=== PATIENT | male | born 1950 ===

== ENCOUNTER 2021-09-04 10:43 | Emergency (ER) | payer MEDICARE, BC ==
[2021-09-04 10:46] VITALS: BP 163/73; PULSE 76
--- NOTE | 2021-09-04 11:07 | EDM.PDOC ---
ED HPI GENERAL MEDICAL PROBLEM - General Chief Complaint: General Stated Complaint: Rash Time Seen by Provider: 09/04/21 10:47 Source of Information: Reports: Patient History Limitations: Reports: No Limitations - History of Present Illness INITIAL COMMENTS - FREE TEXT/NARRATIVE: This patient is a 71 year old male that presents to the ER. Patient reports that he started 2 days ago with left front,m left lateral back. Patient reports some mild pain and burning. Patient denies any n, v, d, f. Reports no history of liver or renal disease. Onset Date: 09/02/21 Location: Reports: Back Front/Back Body Image: 1 - rash 2 - rash Severity: Mild Improves with: Reports: None Worsens with: Reports: None Associated Symptoms: Reports: Rash. Denies: Confusion, Chest Pain, Cough, cough w sputum, Fever/Chills, Headaches, Nausea/Vomiting, Shortness of Breath Left Trunk Pain Score (Numeric/FACES): 3 - Related Data Allergies Allergy/AdvReac Type Severity Reaction Status Date / Time methylprednisolone Allergy Cannot Verified 09/04/21 10:42 [From Medrol] Remember medrol Allergy Cannot Uncoded 09/04/21 10:42 Remember Home Meds: Home Meds Cholecalciferol (Vitamin D3) [Vitamin D] 5,000 units PO DAILY 04/15/15 [History] Clopidogrel Bisulfate [Clopidogrel] 75 mg PO DAILY 04/15/15 [History] Insulin Glarg,Human.Rec.Analog [Lantus Solostar] 10 units SQ BEDTIME 04/15/15 [History] Metoprolol Succinate [Toprol XL 50mg] 100 mg PO DAILY 04/15/15 [History] Quinapril HCl 40 mg PO DAILY 04/15/15 [History] amLODIPine Besylate [Amlodipine Besylate] 10 mg PO DAILY 04/15/15 [History] Aspirin [Halfprin] 81 mg PO BEDTIME 12/16/15 [History] Insulin Aspart [NovoLOG] 6 units SQ TIDAC 02/19/19 [History] Rosuvastatin [Crestor] 5 mg PO DAILY 02/19/19 [History] Acyclovir [Zovirax] 800 mg PO 5XDAY 7 Days #35 tab 09/04/21 [Rx] Past Medical History HEENT History: Reports: Impaired Vision Cardiovascular History: Reports: High Cholesterol, Hypertension, Stents Other Cardiovascular History: CAD: history of previous cardiac stents; said he had a physical per Dr. Nader Santana recently, then had a cardiolite stress, sent to cardiology; stents placed 01-28-19; since PTCA:denies any chest pain, denies any SOB, no orthopedic complaints, appetite good, denies dizziness, cardiac cath insertion site in right wrist healing, saw cardiology for followup last week--said they listened to his heart and lungs, denies any ankle edema; is back to work, at this time not to lift more than 5 lbs, uses his treadmill as before at 2 mph/0 slope then 2.5 mph then raises slope slightly for 15-30 min every day. Discussed. Endocrine/Metabolic History: Reports: Diabetes, Type II Other Endocrine/Metabolic History: says he checks his blood sugars at home, they have been in good range, last A1C is 12-21-18 at 6.8 Oncologic (Cancer) History: Reports: Prostate - Infectious Disease History Infectious Disease History: Reports: Shingles - Past Surgical History Cardiovascular Surgical History: Reports: Percutaneous Transluminal Angioplasty GI Surgical History: Reports: Appendectomy Male Surgical History: Reports: Prostatectomy Social & Family History - Tobacco Use Tobacco Use Status *Q: Never Tobacco User - Caffeine Use Caffeine Use: Reports: Coffee - Recreational Drug Use Recreational Drug Use: No ED ROS GENERAL - Review of Systems Review Of Systems: See Below Constitutional: Reports: No Symptoms HEENT: Reports: No Symptoms Respiratory: Reports: No Symptoms Cardiovascular: Reports: No Symptoms Endocrine: Reports: No Symptoms GI/Abdominal: Reports: No Symptoms : Reports: No Symptoms Musculoskeletal: Reports: No Symptoms Skin: Reports: Rash (left lower back) Neurological: Reports: No Symptoms Psychiatric: Reports: No Symptoms Hematologic/Lymphatic: Reports: No Symptoms Immunologic: Reports: No Symptoms ED EXAM, GENERAL - Physical Exam Exam: See Below General Appearance: Alert, WD/WN, No Apparent Distress Respiratory/Chest: No Respiratory Distress, Lungs Clear, Normal Breath Sounds, No Accessory Muscle Use Cardiovascular: Normal Peripheral Pulses, Regular Rate, Rhythm, No Edema, No Gallop, No JVD, No Murmur, No Rub Peripheral Pulses: 2+: Radial (L), Radial (R) Extremities: Normal Inspection Neurological: Alert, Oriented Psychiatric: Normal Affect, Normal Mood Skin Exam: Warm, Dry, Zoster-Like Rash (left lower lateral back along dermatome T9.) Course - Vital Signs Last Recorded V/S: Last Vital Signs Temp 95.3 F L 09/04/21 10:43 Pulse 76 09/04/21 10:43 Resp 16 09/04/21 10:43 BP 163/73 H 09/04/21 10:43 Pulse Ox 95 09/04/21 10:43 Departure - Departure Time of Disposition: 11:02 Disposition: Home, Self-Care 01 Condition: Fair Clinical Impression: Shingles Qualifiers: Herpes zoster complications: without complications Qualified Code(s): B02.9 - Zoster without complications - Discharge Information *PRESCRIPTION DRUG MONITORING PROGRAM REVIEWED*: Not Applicable *COPY OF PRESCRIPTION DRUG MONITORING REPORT IN PATIENT KASI: Not Applicable Prescriptions: Acyclovir [Zovirax] 800 mg PO 5XDAY 7 Days #35 tab Instructions: Shingles, [id number] Additional Instructions: Followup with primary care provider Return to the ER for worsening of condition or any emergent concerns such as fever, vomiting, or other concerns Acyclovir medication as prescribed to [facility]. Sepsis Event Note (ED) - Evaluation Sepsis Screening Result: No Definite Risk - Focused Exam Vital Signs: Vital Signs Temp Pulse Resp BP Pulse Ox 09/04/21 10:43 95.3 F L 76 16 163/73 H 95 - Assessment/Plan Plan: PLEASE SEE RN NOTE FOR PFS
== END 2021-09-04 11:10 | disposition home or self-care (01) ==
LOC: CC.ED 10:43
DX: B02.9 Zoster without complications (principal); E78.00 Pure hypercholesterolemia, unspecified; I10 Essential (primary) hypertension; I25.10 Atherosclerotic heart disease of native coronary artery without angina pectoris; E11.9 Type 2 diabetes mellitus without complications; Z88.8 Allergy status to other drugs, medicaments and biological substances; Z79.4 Long term (current) use of insulin; Z79.02 Long term (current) use of antithrombotics/antiplatelets; Z79.82 Long term (current) use of aspirin; Z79.899 Other long term (current) drug therapy
CPT/HCPCS: 99283